=== PATIENT | female | born 1995 | race Caucasian/White ===

== ENCOUNTER 2023-03-19 05:48 | Day surgery (SDC) | payer OTHER, SELFPAY ==
[2023-02-28 12:00] VITALS: BMI 23.8
[2023-03-19 07:00] VITALS: BP 100/68; PULSE 73; RESP 16; TEMP 37.1; O2SAT 100; BMI 23.6
--- NOTE | 2023-03-19 07:17 | P.PNAN_ITS ---
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 [facility], [facility] Social History Social History Smoking status: Never smoker Second hand tobacco smoke exposure: No Alcohol intake: current Alcohol use details: weekends Substance use: never Substance use type: does not use Living arrangements: with family Spiritual care concerns: No Anes - Eval Final PreProcedure Day of Procedure 03/19/23 07:17 Patient weight: normal Heart: regular rate and rhythm Lungs: clear to auscultation Airway: Mallampati scale class 1 Neurological: alert and oriented Last oral intake: >/= 8 hours ASA classification: I Emergent: no Anesthetic plan: proceed Anesthesia type and monitoring: general LMA and standard monitoring Results Review: All pre-operative results and documents have been reviewed as part of the pre- operative evaluation. Informed Consent: The patient's anesthetic plan and its attendant risks and benefits were discussed with the patient/family/POA. Questions were solicited and answers provided to the satisfaction of the patient/family/POA.
--- NOTE | 2023-03-19 07:26 | WPDHPUPDATE1 ---
History and Physical Update Update Date/Time: 03/19/23 07:26 History and Physical has been reviewed, including an updated exam of the patient. There are NO changes in the patient's condition. Risks, benefits, and alternatives have been discussed and questions answered. Patient agrees to proceed with procedure.
[2023-03-19] MEDS: ceFAZolin SODIUM 2 GM/20 ML SW SYRINGE IV PUSH (07:28)
[2023-03-19] MEDS: LACTATED RINGERS 1,000 ML 30 ML IV CONT ×2 (07:31→10:15)
[2023-03-19] MEDS: SCOPOLAMINE 1 MG PATCH 1 PATCH TRANSDERM (07:31)
--- NOTE | 2023-03-19 07:32 | SUR.PREOP ---
500CC IVF BOLUS GIVEN PER DR FRANKLIN ORDERS
[2023-03-19] MEDS: LIDO 1%/EPINEPHRINE 1:100,000 20 ML VIAL 30 ML INFILTRATE (07:40)
[2023-03-19] MEDS: TRANEXAMIC ACID 1,000 MG/10 ML AMPUL 1000 MG IV PUSH (07:40)
[2023-03-19] MEDS: NACL 0.9% IRRIG POUR BOTTLE 900 ML, GENTAMICIN SULFATE INJ 160 MG, ceFAZolin 2 GM, POVI... IRRIGATION (08:39)
--- NOTE | 2023-03-19 09:23 | SUR.PREOP ---
LATE NOTE, 0020; FEMALE RN IN ROOM WHILE DR NOEMI DISLA PT. SIG OTHER AT BEDSIDE ALSO
--- NOTE | 2023-03-19 10:07 | P.OP_ITS ---
Procedure Note - Detailed Date of Procedure 03/19/23 Pre-op Diagnosis Micromastia and Breast Ptosis Post-op Diagnosis Same Procedure Performed Bilateral augmentation mastopexy Surgeon Monroe Lei MD Anesthesia General Findings Inverted T Superior pedicle Bilateral Cat Wright SoftTouch 485cc Right - REF# [id number] SN [id number] Left - REF# [id number] SN [id number] Description of Procedure She is here today for bilateral breast augmentation mastopexy. Previously and again today the risks, benefits, alternatives were discussed in extensive detail. I wanted her to be very realistic about the risks involved as well as expectations. We discussed aftercare and what to monitor for. Made sure answered all of her questions to her satisfaction today and consent was obtained. Marked in the preoperative holding area with their verification. The patient wa s taken to the operating room placed supine on the operating table. Anesthesia was provided by anesthesiology. A surgical time-out was taken. We cleansed the skin and 1% lidocaine and 0.25% Marcaine with epinephrine was used anesthetize as a field block. She was prepped and draped in a standard sterile fashion. Tegaderm nipple Flowers were placed. A 15 blade used to make an incision just superior to the inframammary fold leaving a cusp of de-epithelized tissue at the t junction. Dissection was continued until the chest wall as identified. I incised the pectoralis major along its inferior border and completely released the inferior border leaving the medial border intact. I created a subpectoral pocket in the appropriate dimensions based on our preoperative planning for the implant. I then copiously irrigated with saline solution and verified a strict hemostasis. Next the use a triple antibiotic and Betadine containing solution to irrigate the pocket. I washed my gloves with the triple antibiotic and Betadine solution. We washed the implant immediately upon opening it with this solution and only opened it when we needed it. I used implant funnel and no-touch technique. The implant was introduced into the pocket using the funnel. Having verified positioning of the implant this was closed using 2-0 PDS. I tailor tacked the breast into position. Placed her in a sitting position. Verified the nipple-areolar location based on preoperative planning as well as intraoperative observations and measurements in full agreement. She was placed supine. I de-epithelialized the pedicle. I then removed the inferior central portion of the breast need making sure the implant was well protected. I elevated medial and lateral tissue flaps as well for planned closure. I closed along the IMF with 2-0 Stratafix. Along the vertical with 2-0 PDS. I closed around the areola with 3-0 strata fix. 3-0 Monocryl along the vertical. 3-0 Stratafix along the IMF. I finally closed everything with running subcuticular 4-0 Monocryl and tissue glue. Fluffs and surgical bra were placed. Estimated Blood Loss 100 Drains No Packing No Pathology None sent Complications No immediate complications Condition Stable Disposition PACU
[2023-03-19 10:15] VITALS: BP 122/79; PULSE 106; RESP 12; TEMP 36.3; O2SAT 100
[2023-03-19 10:25] VITALS: BP 117/84; PULSE 107; RESP 21; O2SAT 99
[2023-03-19 10:35] VITALS: BP 121/82; PULSE 81; RESP 12; O2SAT 98
[2023-03-19 10:40] VITALS: BP 118/85; PULSE 98; RESP 20; O2SAT 100
--- NOTE | 2023-03-19 10:49 | WPDANESPN ---
Anes - Prog Note Post-Op Date/Time: 03/19/23 10:49 Cardiovascular status: normal Respiratory status: normal Airway patency: baseline Mental status: baseline Post-Op hydration status: normal Vital Signs: Last Vital Signs Temp 36.3 C L 03/19/23 10:15 Pulse 81 03/19/23 10:35 Resp 12 03/19/23 10:35 BP 121/82 03/19/23 10:35 Pulse Ox 98 03/19/23 10:35 O2 Del Method Room Air 03/19/23 10:35 Pain Score (VAS): 2 I/O: Intake & Output 03/18/23 03/19/23 03/19/23 23:59 07:59 15:59 Intake Total 500 500 Balance 500 500 Patient Feedback: Patient satisfied with anesthetic care.
[2023-03-19 11:00] VITALS: BP 120/84; PULSE 87; RESP 20; O2SAT 100
[2023-03-19] MEDS: oxyCODONE HCL (*CRX) 5 MG TAB IR PO (11:11)
== END 2023-03-19 11:31 | disposition home or self-care (01) ==
PROVIDERS: Visit Provider Surgery Plastic and Reconstructive Surgery
PROC: (CPT 19325; principal; 2023-03-19 07:30)
PROC: (CPT 19316; 2023-03-19 07:30)
DX: N64.82 Hypoplasia of breast (principal); Z41.1 Encounter for cosmetic surgery
CPT/HCPCS: 19325